=== PATIENT | male | born 1975 | race Caucasian/White ===

== ENCOUNTER 2018-04-24 23:46 | Emergency (ER) | payer OTHER ==
[~2018-04-24] VITALS: Ht 185.4 cm; Wt 158.8 kg
--- NOTE | 2018-04-25 00:35 | Diagnostic Imaging Report ---
Exam: 3 views of the left ankle, AP, lateral and oblique Indication: Anterior and lateral left ankle pain for one day Comparison: None Findings: The bones are well mineralized. No fractures, lytic or blastic lesions. Small plantar calcaneal spur. Soft tissue edema of the lower calf and ankle. Impression: No left ankle fracture. Signed by: Dr. Darline Paula M.D. on 04/25/2018 12:31 AM
== END 2018-04-25 01:02 | disposition home or self-care (01) ==
LOC: FSED 23:46
DX: S93.492A Sprain of other ligament of left ankle, initial encounter (principal); I10 Essential (primary) hypertension; Z86.718 Personal history of other venous thrombosis and embolism
CPT/HCPCS: 99283